=== PATIENT | female | born 1990 | race Caucasian/White ===

== ENCOUNTER 2018-08-14 08:59 | Emergency (ER) | payer OTHER, MEDICAID ==
[~2018-08-14] VITALS: Ht 167.6 cm; Wt 163.3 kg
[~2018-08-14 08:59] MED LIST: AMOXICILLIN 50500 M1 PO; AUGMENTIN 875-1 EACH PO; CARAFATE 1 GM TA1 G1 PO; CEPHALEXIN 500500 M3 PO; CIPRO250 M1 PO; CIPRO500 MG PO; FLEXERIL PO; HYDROCODONE-AP1 EAC6 PO; IBUPROFEN 800800 M1 PO; IRON; MOBIC7.5 MG PO; NAPROSYN500 MG PO; NOHOMEMEDICATIONS; NORCO 5-325 TA1 EACH PO; OSELB75 PO; PEPCID20 MG PO; PREDNISONE 10 M10 M1 PO; PRENATAL; TESSALON PERLE100 MG PO; TRAMADOL 50 MG50 MG PO; TRINATE TABLET1 TAB PO; ULTRAM 50MG TAB50 MG PO; VENTOLIN HFA 1818 GM INH; VISTARIL 25 MG25 M1 OR; ZOFRAN ODT4 MG PO; ZPAK PO
[2018-08-14 09:28] LABS: ABSOLUTE BASOPHILS 0.1 thou/uL (0.0-0.2); ABSOLUTE EOSINOPHILS 0.2 thou/uL (0.0-0.7); ABSOLUTE LYMPHOCYTES 2.2 thou/uL (0.8-5.3); ABSOLUTE MONOCYTES 0.5 thou/uL (0.0-1.2); ABSOLUTE NEUTROPHILS 4.9 thou/uL (1.6-8.1); EOSINOPHILS 2.7 %; HEMATOCRIT 35.9 % (37.0-47.0); HEMOGLOBIN 11.5 gm/dL (12.0-15.0); LYMPHOCYTES 27.8 %; MCH 24.1 pg (26.0-34.0); MCV 75.3 fL (80.0-100.0); MONOCYTES 6.3 %; MPV 8.2 fl. (7.2-11.1); NUCLEATED RBCS 0 /100WBC; PLATELET COUNT* 348 thou/uL (150-400); POLYS 62.2 %; RBC 4.77 mil/uL (4.20-5.00); RDW-CV 16.8 % (10.5-14.5); WBC 7.9 thou/uL (4.0-11.0)
[2018-08-14 10:01] LABS: ANION GAP 6 mmol/L (7-16); BUN 9 mg/dL (7-18); CHLORIDE 109 mmol/L (98-107); CO2 28 mmol/L (21-32); CREATININE 0.6 mg/dL (0.6-1.3); GLUCOSE 90 mg/dL (70-99); POTASSIUM 3.5 mmol/L (3.5-5.1); SODIUM 143 mmol/L (136-145)
[2018-08-14 10:12] LABS: APTT 30.2 Seconds (25.0-31.3); PROTIME 9.9 Seconds (9.20-11.50)
[2018-08-14 10:23] LABS: ALKALINE PHOSPHATASE 82 U/L (46-116); CK-MB MASS < 0.5 ng/mL (<0.5-3.6); LIPASE 148 U/L (73-393); MAGNESIUM 1.8 mg/dL (1.8-2.4); NT-PRO BRAIN NAT PEPTIDE 22 pg/mL (<300); SGOT 16 U/L (15-37); SGPT 20 U/L (30-65); TOTAL BILIRUBIN 0.2 mg/dL (<0.1-1.0); TOTAL PROTEIN 6.8 g/dL (6.4-8.2); TROPONIN-I LEVEL <0.06 ng/mL (<0.06)
[2018-08-14 10:31] VITALS: BP 114/59
--- NOTE | 2018-08-15 10:47 | EKG ---
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
== END 2018-08-14 10:32 | disposition home or self-care (01) ==
LOC: M.ERS 08:59
PROVIDERS: Family Medicine
DX: R07.9 Chest pain, unspecified (principal); I50.9 Heart failure, unspecified; Z98.890 Other specified postprocedural states; W19.XXXA Unspecified fall, initial encounter; Y93.89 Activity, other specified; Y92.89 Other specified places as the place of occurrence of the external cause; Y99.8 Other external cause status

== ENCOUNTER 2018-09-14 10:52 | Emergency (ER) | payer OTHER, MEDICAID ==
[~2018-09-14] VITALS: Ht 167.6 cm; Wt 158.8 kg
[2018-09-14] MEDS ORDERED: PERCOCET PO (12:18)
[2018-09-14 12:32] VITALS: BP 133/85
== END 2018-09-14 12:44 | disposition home or self-care (01) ==
LOC: M.ERS 10:52
DX: M25.561 Pain in right knee (principal); I50.9 Heart failure, unspecified; Z98.890 Other specified postprocedural states; Z86.711 Personal history of pulmonary embolism; Z86.2 Personal history of diseases of the blood and blood-forming organs and certain disorders involving the immune mechanism

== ENCOUNTER 2019-01-20 11:30 | Emergency (ER) | payer OTHER ==
[~2019-01-20] VITALS: Ht 165.1 cm; Wt 150.6 kg
[~2019-01-20 11:30] MED LIST changes: +PERCOCET PO
[2019-01-20 12:13] LABS: ABSOLUTE BASOPHILS 0.1 thou/uL (0.0-0.2); ABSOLUTE EOSINOPHILS 0.2 thou/uL (0.0-0.7); ABSOLUTE LYMPHOCYTES 1.7 thou/uL (0.8-5.3); ABSOLUTE MONOCYTES 0.4 thou/uL (0.0-1.2); ABSOLUTE NEUTROPHILS 4.3 thou/uL (1.6-8.1); BASOPHILS 0.9 %; EOSINOPHILS 2.4 %; HEMOGLOBIN 12.5 gm/dL (12.0-15.0); MCH 24.9 pg (26.0-34.0); MCHC 32.8 g/dL (28.0-37.0); MONOCYTES 6.6 %; MPV 8.7 fl. (7.2-11.1); NUCLEATED RBCS 0 /100WBC; PLATELET COUNT* 304 thou/uL (150-400); POLYS 64.1 %; RDW-CV 17.2 % (10.5-14.5); WBC 6.7 thou/uL (4.0-11.0)
[2019-01-20 12:15] LABS: URINE BLOOD 3+ (Negative); URINE CLARITY SL CLOUDY; URINE COLOR DARK YELLOW; URINE GLUCOSE-RANDOM TRACE (Negative); URINE KETONES TRACE (Negative); URINE LEUKOCYTES-REFLEX NEGATIVE (Negative); URINE PROTEIN 1+ (Negative); URINE SPECIFIC GRAVITY >= 1.030 (1.005-1.030)
[2019-01-20 12:21] LABS: APTT 29.2 Seconds (25.0-31.3); ICTOTEST (BILI CONFIRMATORY) Negative (Negative); PROTIME 10.3 Seconds (9.20-11.50); URINE BILIRUBIN 2+ (Negative); URINE NITRITE-REFLEX POSITIVE (Negative)
[2019-01-20 12:22] LABS: SQUAMOUS >10 Many /LPF (0-3); URINE WBC-REFLEX 0-5 Rare /HPF (0-5)
[2019-01-20 12:23] LABS: BACTERIA-REFLEX >30 Many /HPF (None Seen); URINE RBC 0-2 Rare /HPF (0-2)
[2019-01-20 12:24] LABS: CASTS None Seen /LPF (None Seen); CRYSTALS None Seen /LPF (None Seen); MUCUS 0-3 Light strn/LPF (None Seen)
[2019-01-20 12:30] LABS: ALKALINE PHOSPHATASE 66 U/L (46-116); ANION GAP 8 mmol/L (7-16); BUN 7 mg/dL (7-18); CALCIUM 8.4 mg/dL (8.5-10.1); CHLORIDE 107 mmol/L (98-107); CO2 29 mmol/L (21-32); CREATININE 0.7 mg/dL (0.6-1.3); GLUCOSE 92 mg/dL (70-99); SGOT 22 U/L (15-37); SGPT 33 U/L (30-65); SODIUM 144 mmol/L (136-145); TOTAL BILIRUBIN 0.4 mg/dL (<0.1-1.0); TOTAL PROTEIN 6.4 g/dL (6.4-8.2); TROPONIN-I LEVEL <0.06 ng/mL (<0.06)
[2019-01-20] MEDS ORDERED: POTASSIUM20 PO (13:34)
[2019-01-20] MEDS ORDERED: KEFLEX500 M1 PO (13:34)
[2019-01-20] MEDS ORDERED: ACETAMINOPHEN-1 EAC1 PO (13:35)
[2019-01-20 13:57] VITALS: BP 110/60
--- NOTE | 2019-01-22 09:59 | EKG ---
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 : 1990 Requested By: Mily Encarnacion Order Number: [id number] MD: Meliton Bradley Measurements Intervals [place] Rate: 71 P: 59 [place]: 190 QRS: 40 QRSD: 97 T: 7 QT: 386 QTc: 420 Interpretive Statements Sinus rhythm Borderline T abnormalities, diffuse leads Baseline wander in lead(s) II,III,aVF Compared to ECG 08/14/2018 09:11:25 T-wave abnormality now present Electronically Signed On 01-22-2019 9:59:35 CDT by Meliton Bradley [email or web address] <ELECTRONICALLY SIGNED> By: Meliton Bradley MD, [facility] 01/22/19 0959 1138 1138 Meliton Bradley MD, [facility] /EPI
== END 2019-01-20 13:55 | disposition home or self-care (01) ==
LOC: M.ERS 11:30
PROVIDERS: Physician Assistant
DX: N39.0 Urinary tract infection, site not specified (principal); E87.6 Hypokalemia; R06.00 Dyspnea, unspecified; M79.661 Pain in right lower leg; I50.9 Heart failure, unspecified; Z86.2 Personal history of diseases of the blood and blood-forming organs and certain disorders involving the immune mechanism; Z98.890 Other specified postprocedural states; Z86.711 Personal history of pulmonary embolism

== ENCOUNTER 2019-07-05 21:08 | Emergency (ER) | payer OTHER ==
[~2019-07-05] VITALS: Ht 165.1 cm; Wt 145.2 kg
[~2019-07-05 21:08] MED LIST changes: +ACETAMINOPHEN-1 EAC1 PO; +KEFLEX500 M1 PO; +POTASSIUM20 PO
[2019-07-05] MEDS ORDERED: UNICOMPLEX M TA1 TA1 PO (21:17)
[2019-07-05 22:05] LABS: ABSOLUTE BASOPHILS 0.1 thou/uL (0.0-0.2); ABSOLUTE EOSINOPHILS 0.2 thou/uL (0.0-0.7); ABSOLUTE LYMPHOCYTES 3.5 thou/uL (0.8-5.3); ABSOLUTE MONOCYTES 0.6 thou/uL (0.0-1.2); ABSOLUTE NEUTROPHILS 6.6 thou/uL (1.6-8.1); HEMATOCRIT 35.3 % (37.0-47.0); HEMOGLOBIN 11.8 gm/dL (12.0-15.0); LYMPHOCYTES 31.7 %; MCH 25.8 pg (26.0-34.0); MCHC 33.4 g/dL (28.0-37.0); MCV 77.4 fL (80.0-100.0); MONOCYTES 5.4 %; MPV 8.3 fl. (7.2-11.1); NUCLEATED RBCS 0 /100WBC; PLATELET COUNT* 377 thou/uL (150-400); POLYS 59.9 %; RBC 4.56 mil/uL (4.20-5.00); RDW-CV 14.9 % (10.5-14.5)
[2019-07-05 22:10] LABS: ANION GAP 9 mmol/L (7-16); BUN 11 mg/dL (7-18); CALCIUM 8.4 mg/dL (8.5-10.1); CHLORIDE 106 mmol/L (98-107); CO2 25 mmol/L (21-32); CREATININE 0.8 mg/dL (0.6-1.3); GLUCOSE 87 mg/dL (70-99); POTASSIUM 3.7 mmol/L (3.5-5.1); SODIUM 140 mmol/L (136-145)
[2019-07-05 22:15] LABS: URINE BILIRUBIN NEGATIVE (Negative); URINE BLOOD TRACE (Negative); URINE CLARITY CLEAR; URINE COLOR YELLOW; URINE GLUCOSE-RANDOM NEGATIVE (Negative); URINE KETONES NEGATIVE (Negative); URINE LEUKOCYTES-REFLEX NEGATIVE (Negative); URINE NITRITE-REFLEX NEGATIVE (Negative); URINE PROTEIN NEGATIVE (Negative); URINE SPECIFIC GRAVITY >= 1.030 (1.005-1.030); URINE UROBILINOGEN 0.2 E.U./dl (0.2-1.0)
[2019-07-05 22:20] LABS: ALBUMIN 3.2 g/dL (3.4-5.0); ALKALINE PHOSPHATASE 75 U/L (46-116); NT-PRO BRAIN NAT PEPTIDE 130 pg/mL (<300); SGOT 13 U/L (15-37); SGPT 17 U/L (30-65); TOTAL BILIRUBIN 0.2 mg/dL (<0.1-1.0); TOTAL PROTEIN 6.9 g/dL (6.4-8.2); TROPONIN-I LEVEL <0.06 ng/mL (<0.06)
[2019-07-05] MEDS ORDERED: TORADOL 10 MG T10 MG PO (22:55)
[2019-07-05] MEDS ORDERED: CYCLOBENZAPRINE5 MG PO (22:55)
[2019-07-05 23:13] VITALS: BP 102/53
--- NOTE | 2019-07-08 16:54 | EKG ---
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
== END 2019-07-05 23:14 | disposition home or self-care (01) ==
LOC: M.ERS 21:08
PROVIDERS: Personal Emergency Response Attendant
DX: M71.562 Other bursitis, not elsewhere classified, left knee (principal); R07.89 Other chest pain; I50.9 Heart failure, unspecified; Z98.890 Other specified postprocedural states; Z86.2 Personal history of diseases of the blood and blood-forming organs and certain disorders involving the immune mechanism; Z90.49 Acquired absence of other specified parts of digestive tract

== ENCOUNTER 2021-10-26 07:39 | Emergency (ER) | payer OTHER, MEDICAID ==
[~2021-10-26] VITALS: Ht 167.6 cm; Wt 120.2 kg
[~2021-10-26 07:39] MED LIST changes: +CYCLOBENZAPRINE5 MG PO; +TORADOL 10 MG T10 MG PO; +UNICOMPLEX M TA1 TA1 PO
[2021-10-26] MEDS ORDERED: ZPAK PO (09:42)
[2021-10-26] MEDS ORDERED: TESSALON PERLE100 MG PO (09:42)
[2021-10-26] MEDS ORDERED: PREDNISONE 20 M20 M1 PO (09:42)
[2021-10-26 09:53] VITALS: BP 130/80
== END 2021-10-26 09:54 | disposition home or self-care (01) ==
LOC: M.ERS 07:39
DX: U07.1 COVID-19 (principal); I42.9 Cardiomyopathy, unspecified; I50.9 Heart failure, unspecified; Z98.890 Other specified postprocedural states; Z98.51 Tubal ligation status; Z90.49 Acquired absence of other specified parts of digestive tract